=== PATIENT | male | born 1975 | race Caucasian/White ===

== ENCOUNTER 2022-10-17 10:12 | Inpatient (IN) | payer OTHER ==
[2022-10-17 10:49] VITALS: BMI 21.2
[2022-10-17] MEDS ORDERED: DICYCLOMINE HCL 10 MG CAPSULE PO PRN (12:11)
[2022-10-17] MEDS ORDERED: METHOCARBAMOL 500 MG TABLET PO PRN (12:11)
[2022-10-17] MEDS ORDERED: IBUPROFEN 400 MG TABLET (FP) PO PRN (12:11)
[2022-10-17] MEDS ORDERED: ONDANSETRON *ODT* 4 MG TABLET SL PRN (12:11)
[2022-10-17] MEDS ORDERED: IBUPROFEN 600 MG TABLET (FP) PO PRN (12:11)
[2022-10-17] MEDS ORDERED: hydrOXYzine PAMOATE 25 MG CAPSULE (FP) PO PRN (12:11)
[2022-10-17] MEDS ORDERED: NALOXONE HCL (KLOXXADO) 8 MG SPRAY NS PRN (12:11)
[2022-10-17] MEDS ORDERED: ACETAMINOPHEN 325 MG TABLET (FP) PO PRN ×2 (12:11)
[2022-10-17] MEDS ORDERED: BISMUTH SUBSALICYLATE 262 MG/15 ML BTL PO PRN (12:11)
[2022-10-17] MEDS ORDERED: MAGNESIUM HYDROX 2400MG/30ML ORAL SUSPENSION 30 ML CUP PO PRN (12:11)
[2022-10-17] MEDS ORDERED: BENZOCAINE/MENTHOL (CHLORASEPTIC ) LOZENGE MM PRN (12:11)
[2022-10-17] MEDS ORDERED: MAG HYDROX/AL HYDROX/SIMETH 30 ML UNIT-DOSE CUP PO PRN (12:11)
[2022-10-17] MEDS ORDERED: LOPERAMIDE HCL 2 MG CAPSULE PO PRN (12:11)
[2022-10-17] MEDS ORDERED: POLYETHYLENE GLYCOL (HEALTHYLAX) 3350 17 GM PACKET PO PRN (12:11)
[2022-10-17 15:39] LABS: HEMATOCRIT 37.9 % (35.4-49); HEMOGLOBIN 13.3 GM/dL (11.7-16.9); MCH 33.9 pg (25.7-33.7); MCHC 35.2 g/dl (32.0-35.9); MEAN CELL VOLUME 96.4 fl (80-96); MEAN PLT VOLUME 7.3 fl (7.5-11.1); PLATELET COUNT 225 10^3/uL (134-434); RBC 3.94 M/mm3 (4.00-5.60); WHITE BLOOD COUNT 5.5 K/mm3 (4.0-10.0)
[2022-10-17 17:03] LABS: CALCIUM 8.3 mg/dL (8.5-10.1)
[2022-10-17 17:04] LABS: ALBUMIN 3.9 g/dl (3.4-5.0); BLOOD UREA NITROGEN 6.1 mg/dL (7-18)
[2022-10-17 17:07] LABS: CREATININE 0.8 mg/dL (0.55-1.3)
[2022-10-17 17:08] LABS: BILIRUBIN,TOTAL 0.4 mg/dL (0.2-1)
[2022-10-17 17:09] LABS: TOT PROT 7.2 g/dl (6.4-8.2)
[2022-10-17] MEDS ORDERED: chlordiazePOXIDE HCL 25 MG CAPSULE PO PRN (21:21)
[2022-10-17] MEDS: THIAMINE HCL 100 MG TABLET (FP) PO SCH (22:39)
[2022-10-17] MEDS: MELATONIN 5 MG TABLETS PO SCH (22:39)
[2022-10-17] MEDS: chlordiazePOXIDE HCL 25 MG CAPSULE PO SCH (22:40)
[2022-10-18] MEDS: chlordiazePOXIDE HCL 25 MG CAPSULE PO SCH ×4 (05:26→22:08)
[2022-10-18] MEDS: PRENATAL VITAMINS W/ FOLIC ACID TABLET (FP) PO SCH (10:26)
[2022-10-18] MEDS: NICOTINE 21 MG/24 HOURS TOPICAL PATCH TD SCH (10:26)
[2022-10-18 16:32] LABS: PH,URINE 8.5 (5.0-8.0); URINE APPEARANCE CLEAR; URINE BILIRUBIN NEGATIVE (NEGATIVE); URINE COLOR YELLOW; URINE GLUCOSE (UA) NEGATIVE (NEGATIVE); URINE KETONE NEGATIVE (NEGATIVE); URINE LEUK ESTERASE NEGATIVE (NEGATIVE); URINE NITRITE NEGATIVE (NEGATIVE); URINE PROTEIN NEGATIVE (NEGATIVE); URINE UROBILINOGEN 0.2 mg/dL (0.2-1.0)
[2022-10-18] MEDS ORDERED: traZODone HCL 50 MG TABLET (FP) PO SCH (22:00)
[2022-10-18] MEDS: THIAMINE HCL 100 MG TABLET (FP) PO SCH (22:08)
[2022-10-18] MEDS: MELATONIN 5 MG TABLETS PO SCH (22:08)
[2022-10-19] MEDS: chlordiazePOXIDE HCL 25 MG CAPSULE PO SCH ×2 (05:49→10:28)
[2022-10-19] MEDS: PRENATAL VITAMINS W/ FOLIC ACID TABLET (FP) PO SCH (10:28)
[2022-10-19] MEDS: NICOTINE 21 MG/24 HOURS TOPICAL PATCH TD SCH (10:30)
[2022-10-19 13:21] VITALS: BP 112/52; PULSE 110; RESP 18; TEMP 96.9
[2022-10-19] MEDS ORDERED: LACTULOSE 20 GM/30 ML UDC (FOR ORAL USE ONLY) PO SCH (18:00)
[2022-10-20] MEDS ORDERED: chlordiazePOXIDE HCL 10 MG CAPSULE PO PRN
[2022-10-20] MEDS ORDERED: chlordiazePOXIDE HCL 10 MG CAPSULE PO SCH (05:00)
[2022-10-21] MEDS ORDERED: chlordiazePOXIDE HCL 10 MG CAPSULE PO SCH (05:00)
[2022-10-22] MEDS ORDERED: chlordiazePOXIDE HCL 10 MG CAPSULE PO ONE (05:00)
== END 2022-10-19 14:10 | disposition left against medical advice (07) | DRG 770 ==
LOC: YASAS 10:12 → Y6N 14:07 → UNDOADMIN 14:07
PROVIDERS: ADMIT Allergy & Immunology; ATTEND Surgery
PROC: HZ2ZZZZ Detoxification Services for Substance Abuse Treatment (ICD-10-PCS; principal; 2022-10-17)
DX: F10.230 Alcohol dependence with withdrawal, uncomplicated (principal); F17.210 Nicotine dependence, cigarettes, uncomplicated; F19.24 Other psychoactive substance dependence with psychoactive substance-induced mood disorder; F41.9 Anxiety disorder, unspecified; F32.A Depression, unspecified; R79.89 Other specified abnormal findings of blood chemistry; R73.9 Hyperglycemia, unspecified; Z91.51 Personal history of suicidal behavior
CPT/HCPCS: 36415; 80053; 81003; 82140; 85027; 86780; 87811; 93005; 93010; C9803-CS; U0003; U0005